=== PATIENT | male | born 1975 | race Caucasian/White ===

== ENCOUNTER 2017-12-30 18:21 | Emergency (ER) | payer OTHER ==
[2017-12-30 18:43] VITALS: BP 158/96; PULSE 89; RESP 18; TEMP 98.5
--- NOTE | 2017-12-30 20:02 | ED ---
Skin/Abscess/FB HPI - General Chief complaint: Skin/Abscess/Foreign Body Stated complaint: [facility] - chemical exposure Time Seen by Provider: 12/30/17 18:46 Source: patient Mode of arrival: ambulatory Limitations: no limitations - History of Present Illness Initial comments: This a 42-year-old male with past medical history of psoriasis who presents today for chief complaint of rash in [place]. Patient states that 2-3 months ago while working he was exposed to a dust that he thinks contained Lyme and other unknown chemicals, he stated that a coworker was swinging around a bag of dry chemicals in front of a fan and it blew into his face, he stated that he was told to wash off the lyme with water, however he looked online and stated he found information stating that water activates the Lyme used a vinegar bath instead. The next day he noticed dry patches in his [place]. And since then the area of dryness has spread throughout his old [place] and become erythematous. Last night he was sleeping when a chunk of his [place] hair fell out onto his pillow. This was concerning to him and he thought it might be associated when he is exposed to chemicals so decided to present to the emergency department today. In addition patient noted that since this chemicals had been blowing across his body, he had noted a red pimple-like lesion on his right upper arm and a few randomly distributed on his thighs bilaterally about 10 in total, that come and go he currently only has 4 lesions. He was unsure if this is associated with a chemical exposure either and wanted to be checked out. Patient works at [employer]. Patient denies any irritation of the eyes bilaterally, mouth, difficulty breathing, cough, chest pain, shortness of breath, visual changes, wheezes, stridor, or lesions located anywhere else in the body. Patient denies any recent fever, chills, back pain, abdominal pain , nausea or vomiting, numbness or tingling, dysuria or hematuria, constipation or diarrhea, headaches or visual changes, or any other complaints. - Related Data Previous Rx's Medication Instructions Recorded Cephalexin [Keflex] 500 mg PO Q12HR 10 Days #20 cap 12/30/17 Clotrimazole [Clotrimazole 1% Top 1 applic TOPICAL BID 10 Days #1 12/30/17 Soln] tube predniSONE 20 mg PO DAILY 5 Days #5 tab 12/30/17 Allergies Allergy/AdvReac Type Severity Reaction Status Date / Time Penicillins AdvReac Diarrhea Verified 12/30/17 18:39 Review of Systems ROS Statement: Those systems with pertinent positive or pertinent negative responses have been documented in the HPI. ROS Other: All systems not noted in ROS Statement are negative. Constitutional: Denies: fever, chills, night sweats Eyes: Denies: eye pain, eye discharge, vision change ENT: Denies: throat pain, epistaxis Respiratory: Denies: cough, dyspnea, wheezes, hemoptysis, stridor Cardiovascular: Denies: chest pain, palpitations, dyspnea on exertion Gastrointestinal: Denies: abdominal pain, nausea, vomiting, diarrhea, constipation Genitourinary: Denies: urgency, dysuria Musculoskeletal: Denies: back pain Skin: Reports: as per HPI, rash Neurological: Denies: headache, weakness, numbness, paresthesias, confusion, abnormal gait Past Medical History Past Medical History: No Reported History History of Any Multi-Drug Resistant Organisms: None Reported Past Surgical History: No Surgical Hx Reported Past Psychological History: No Psychological Hx Reported Smoking Status: Current every day smoker Past Alcohol Use History: Occasional Past Drug Use History: Marijuana General Exam - General Exam Comments Initial Comments: General: The patient is awake and alert, in no distress, and does not appear acutely ill. Eye: Pupils are equal, round and reactive to light, extra-ocular movements are intact. No nystagmus. There is normal conjunctiva bilaterally. No signs of icterus. Ears, nose, mouth and throat: There are moist mucous membranes and no oral lesions. Neck: The neck is supple, there is no tenderness or JVD. Cardiovascular: There is a regular rate and rhythm. No murmur, rub or gallop is appreciated. Respiratory: Lungs are clear to auscultation, respirations are non-labored, breath sounds are equal. No wheezes, stridor, rales, or rhonchi. Musculoskeletal: Normal ROM, no tenderness. Strength 5/5. Sensation intact. Pulses equal bilaterally 2+. Neurological: A&O x 3. CN II-XII intact, There are no obvious motor or sensory deficits. Coordination appears grossly intact. Speech is normal. Skin: Skin is warm and dry. Erythematous dermatitis throughout [place] that is dry and scaling. No evidence of spreading to the face outside of the [place]. No drainage, no tenderness or warmth to palpation. Small pustule less than half centimeter on right shoulder, that are identical to the remaining 3 of the upper thighs b/l. No surrounding erythema, warmth, tenderness or active draining. Patient has small erythematous scaling area of the elbows bilaterally. No lesions on hands or feet. Psychiatric: Cooperative, appropriate mood & affect, normal judgment. Limitations: no limitations Course Vital Signs 12/30/17 18:40 Temperature 98.5 F Pulse Rate 89 Respiratory 18 Rate Blood Pressure 158/96 O2 Sat by Pulse 98 Oximetry Medical Decision Making - Medical Decision Making Pt was evaluated by myself and Dr. Cheng, at this time we feel that the dermatitis seen on physical examination of the appeared to look like a fungal infection possibly secondary. Dr. Cheng felt that it could also have a secondary bacterial component given the degree of erythema. Patient afebrile, appearing well signs of systemic infection. Patient denies any pulmonary symptoms and pulmonary examination unremarkable at this time low suspicion for a pneumonitis from inhalation of chemicals. Pt was given RX for prednisone 20mg daily x5 days for inflammation, keflex 500mg to treat any possible secondary bacterial infection and a topical antifungal. Pt was instructed to trim beards length, use daily Selsun Blue shampoo over the [place] daily until f/u with PCP and dermatology in 1-2 days for further evaluation and treatment. Patient was instructed to return to ER if symptoms worsen or change. Patient agreed plan and was discharged in stable condition. Disposition Clinical Impression: Dermatitis of face, Folliculitis Disposition: HOME SELF-CARE Condition: Good Additional Instructions: Please use Selsun Blue shampoo once daily on [place] for 10 days. Please use medication as discussed. Please follow-up with dermatology within the next 1-2 days. Please return to emergency room if the symptoms increase or worsen or for any other concerns as discussed.. Prescriptions: Cephalexin [Keflex] 500 mg PO Q12HR 10 Days #20 cap Clotrimazole [Clotrimazole 1% Top Soln] 1 applic TOPICAL BID 10 Days #1 tube predniSONE 20 mg PO DAILY 5 Days #5 tab Is patient prescribed a controlled substance at d/c from ED?: No Referrals: None,Stated [Primary Care Provider] - 1-2 days Arlyn Hayes MD [STAFF PHYSICIAN] - 1-2 days Time of Disposition: 20:02
== END 2017-12-30 20:19 | disposition home or self-care (01) ==
LOC: EC 18:21
DX: L30.9 Dermatitis, unspecified (principal); L73.9 Follicular disorder, unspecified; F17.200 Nicotine dependence, unspecified, uncomplicated; Z88.0 Allergy status to penicillin; Y92.69 Other specified industrial and construction area as the place of occurrence of the external cause; Y99.0 Civilian activity done for income or pay
CPT/HCPCS: 99283

== ENCOUNTER → 2018-01-29 | Outpatient (CLI) | payer OTHER ==
[2018-01-29 14:10] LABS: Basophils # (A) 0.1 k/uL (0-0.2); Basophils % (A) 1 %; Eosinophils # (A) 0.1 k/uL (0-0.7); Eosinophils % (A) 1 %; HCT 42.7 % (39.0-53.0); Lymphocytes # (A) 2.1 k/uL (1.0-4.8); Lymphocytes % (A) 19 %; MCH 29.7 pg (25.0-35.0); MCHC 32.9 g/dL (31.0-37.0); MCV 90.4 fL (80.0-100.0); Mean Platelet Volume 7.4; Monocytes # (A) 0.5 k/uL (0-1.0); Monocytes % (A) 5 %; Neutrophils # (A) 8.1 k/uL (1.3-7.7); Neutrophils % (A) 74 %; Platelet Count 261 k/uL (150-450); RBC 4.73 m/uL (4.30-5.90); RDW 13.6 % (11.5-15.5)
[2018-01-29 14:22] LABS: ALT 28 U/L (21-72); AST 26 U/L (17-59)
== END | disposition home or self-care (01) ==
LOC: LABWHC1 13:40
PROVIDERS: ATTEND Physician Assistant Medical
DX: L30.9 Dermatitis, unspecified (principal)
CPT/HCPCS: 36415; 84450; 84460; 85025